=== PATIENT | female | born 1955 | race Caucasian/White ===

== ENCOUNTER → 2016-07-29 | Outpatient (CLI) | payer BC ==
[~2016-07-29] MED LIST: ASA325 MG PO; BENICAR HCT 401 EAC1 PO; CELEBREX200 MG PO; FOSAMAX70 MG PO; OCUVITE SOFTGE1 EACH PO; OXY IR DPS5 MG PO; POLYETHYLENE GL17 GM PO; PROTONIX40 MG PO; SENOKOT S1 TAB PO; THERA1 EACH PO; TYLENOL DPS325 MG PO; ULTRAM DPS50 MG PO; VITAMIN D-32000 UNI1 PO
== END | disposition home or self-care (01) ==
LOC: PTH.S 08:26
DX: Z01.818 Encounter for other preprocedural examination (principal); I10 Essential (primary) hypertension

== ENCOUNTER 2016-08-13 08:35 | Inpatient (IN) | payer BC ==
[~2016-08-13] VITALS: Ht 167.6 cm; Wt 106.4 kg
--- NOTE | 2016-08-13 15:05 | HP ---
ADMIT: 08/13/2016 RM/LOC: W.07 [facility] MR#: [id number] [address] [place], [place] [address] ADRIENNE BELLE [address] [place] [address] Pre-OP History and Physical SEX: F AGE: 61 : 1955 DATE OF SERVICE: CHIEF COMPLAINT: Left knee pain. HISTORY OF PRESENT ILLNESS: The patient is a 61-year-old, white female with left knee DJD. She has had injections in the past, which have not helped. PAST MEDICAL HISTORY: Significant for hypertension, osteoporosis, and C- section. ALLERGIES: NO ALLERGIES. SOCIAL HISTORY: The patient does not smoke or drink alcohol. PHYSICAL EXAMINATION: HEENT: Normocephalic and atraumatic. CV: Regular rate and rhythm. LUNGS: Benign. ABDOMEN: Benign. NEUROLOGIC: Awake and oriented x3. MUSCULOSKELETAL: Shows the patient is short a couple degrees of full extension, flexes 100 degrees. Tender over the medial joint line. Pseudomedial collateral ligament laxity, otherwise stable. Tender over the medial compartment of the knee and the patellofemoral joint. IMAGING DATA: X-rays show left knee DJD down to [id number] medially and patellofemoral arthrosis. ASSESSMENT AND PLAN: Left knee degenerative joint disease. At this point in time, as the patient has failed nonoperative treatment, we will plan left total knee arthroplasty. She understands the risks and benefits of surgical intervention which include, but not limited to infection, DVT, arthrofibrosis, neurovascular injury, early loosening, , etc., and desires to proceed. She will see Dr. Michael for preoperative medical clearance to follow her postoperatively in the hospital for anticoagulation and any medical issues that may arise. Please refer to Dr. Michael's H and P for any in-depth medical issues or medication changes. Rodrikc Palma MD/ alan JOB #: [id number] CC: Rodrick Palma, Attending Physician Jessica Michael, Family Physician
[2016-08-16] MEDS ORDERED: VITAMIN D-32000 UNI1 PO (14:56)
[2016-08-16] MEDS ORDERED: BENICAR HCT 401 EAC1 PO (14:56)
[2016-08-16] MEDS ORDERED: ASA325 MG PO (14:57)
[2016-08-16] MEDS ORDERED: THERA1 EACH PO (14:57)
[2016-08-16] MEDS ORDERED: FOSAMAX70 MG PO (14:57)
[2016-08-16] MEDS ORDERED: CELEBREX200 MG PO (14:57)
[2016-08-16] MEDS ORDERED: OCUVITE SOFTGE1 EACH PO (14:57)
[2016-08-16] MEDS ORDERED: ULTRAM DPS50 MG PO (14:59)
[2016-08-16] MEDS ORDERED: PROTONIX40 MG PO (14:59)
[2016-08-16] MEDS ORDERED: SENOKOT S1 TAB PO (14:59)
[2016-08-16] MEDS ORDERED: TYLENOL DPS325 MG PO (14:59)
[2016-08-16] MEDS ORDERED: POLYETHYLENE GL17 GM PO (14:59)
[2016-08-16] MEDS ORDERED: OXY IR DPS5 MG PO (15:00)
--- NOTE | 2016-08-20 15:26 | OR ---
ADMIT: 08/13/2016 RM/LOC: 512 [facility] MR#: [id number] [address] [address] ADRIENNE BELLE [address] [id number] Operative/Delivery Room Report SEX: F AGE: 61 : 1955 SURGERY DATE: 08/13/2016 SURGEON: Rodrick Palma MD PREOPERATIVE DIAGNOSIS: Left knee degenerative joint disease. POSTOPERATIVE DIAGNOSIS: Left knee degenerative joint disease. PROCEDURE PERFORMED: Left total knee arthroplasty with a Anatoliy and Anatoliy system, size 4 narrow posterior stabilized femoral component, size 3 tibial tray, 10 mm posterior stabilized tibial insert, size 38 patellar button. ASSISTANTS: Juventino Gregg MD and DILCIA Dominguez ANESTHESIA: Spinal. ESTIMATED BLOOD LOSS: Minimal. FLUIDS: Per anesthetic record. COMPLICATIONS: No complications. DRAINS: One drain. TOURNIQUET TIME: 58 minutes. CONDITION ON DISCHARGE: The patient returned to recovery room in fair condition. INDICATION: The patient has been having left knee DJD refractory to nonoperative treatment. She desires total knee arthroplasty. She understands the risks and benefits of procedure and desires to proceed. DESCRIPTION OF PROCEDURE: The patient was taken to the OR, spinal placed. She was laid in the supine position. All bony prominences were well padded. A well- padded tourniquet applied to left lower extremity. The left lower extremity was prepped and draped in the usual sterile fashion, it was exsanguinated. Tourniquet inflated to 350 mmHg. An anterior incision was made over the medial aspect of tibial tubercle, carried proximal to the patella through the skin and subcutaneous tissue with skin knife. Medial arthrotomy then performed with #10 blade. The patella everted. Knee flexed. ACL, PCL, medial and lateral menisci excised. Step drill was then used to open the intramedullary canal of the femur. I placed an IM alignment guide with the distal femoral cutting block down the intramedullary canal set at 13 mm of resection and 5 degrees valgus cut and pinned it to the anterior aspect of the distal femur. I then removed the IM alignment guide. I cut the distal femur using an oscillating saw. I then sized the femur at a 4 narrow. I placed a size four 4-in-1 cutting block on the distal aspect of the femur in 3 degrees of external rotation, made the 4 appropriate cuts using an oscillating saw. I removed this cutting ADMIT: 08/13/2016 RM/LOC: 512 [facility] MR#: [id number] [address] [address] [place] [address] Operative/Delivery Room Report SEX: F AGE: 61 : 1955 block, placed the box cutting jig on the distal aspect of the femur. I cut the box out of the distal femur using a reciprocating saw. I removed this cutting block and I then cut the proximal tibia perpendicular to the long axis of the tibial shaft using a proximal tibial cutting guide and oscillating saw. Posterior aspect of the patella was cut, flush with the posterior aspects of the quadriceps and patellar tendons using the patella cutting saw. This was sized at a 38 and step drilled with a guide. Trial components were then placed. A size 3 tibial tray with 10 mm insert gave excellent range of motion, stability, and patellar tracking. Thus, the femoral component was step drilled. The tibial component was step drilled and cruciate punched. Trial component was then removed. The knee thoroughly injected with an Exparel like compound. I thoroughly irrigated the knee out with bacitracin solution and dried it. I then cemented the tibia, patella, and femoral components into place removing all extraneous cement as it dried. Once this was done, I impacted the 10 mm insert in the tibial tray and ran the knee through a range of motion. It had excellent range of motion, stability, and patellar tracking. Thus, one deep drain was then placed. Medial arthrotomy closed using #1 Vicryl, subcutaneous tissue closed using 2-0 Vicryl, and skin closed using marily. Wounds were washed, dried, dressed with sterile Adaptic, 4x4s, ABD, Webril, and Iglesia wrap. Drapes removed, tourniquet let down. An ice pad was placed on top of the Iglesia wrap. The patient was transferred to the hospital bed and taken back to recovery room in fair condition. Rodrick Palma MD/ alan JOB #: [id number] CC: Rodrick Palma, Attending Physician Jessica Michael, Family Physician
--- NOTE | 2016-09-03 13:58 | DS ---
ADMIT: 08/13/2016 RM/LOC: 512 [facility] MR#: [id number] [address] [address] ADRIENNE BELLE [address] [place] [id number] General Discharge Summary SEX: F AGE: 61 : 1955 ADMISSION DATE: 08/13/2016 DISCHARGE DATE: 08/15/2016 REASON FOR ADMISSION: Elective left total knee arthroplasty after failing conservative care. PREOPERATIVE DIAGNOSIS: Left knee degenerative joint disease. POSTOPERATIVE DIAGNOSIS: Left knee degenerative joint disease. PROCEDURE PERFORMED: Left total knee arthroplasty. SURGEON: Rodrick Palma MD. ASSISTANTS: 1. Juventino Gregg MD. 2. DILCIA Dominguez. ANESTHESIA: Spinal. ESTIMATED BLOOD LOSS: Minimal. COMPLICATIONS: None. PAST MEDICAL HISTORY: Significant for hypertension, osteoporosis, and C- section. HOSPITAL COURSE: The patient was admitted on 08/13/2016, for elective left total knee arthroplasty done successfully without any complications by Dr. Rodrick Palma. The patient tolerated the procedure well. Postoperatively, she did well with pain control. She as expected did suffer from some acute blood- loss anemia. Her hemoglobin dropped to 10.8 on 08/15/2016, but she remained hemodynamically stable and did not require blood transfusion. By postoperative day #2, she was safe stable and doing well with physical therapy. She was ready for discharge home with plans for outpatient physical therapy per total knee arthroplasty protocol. DISCHARGE MEDICATIONS: 1. Benicar HCT 40/25 every morning. 2. Alendronate 70 mg every Friday. 3. Ocuvite every morning. 4. Aspirin 325 mg at bedtime for 6 weeks. 5. Celebrex 200 mg everyday for 2 weeks. ADMIT: 08/13/2016 RM/LOC: 512 [facility] MR#: [id number] [address] [address] [place] BELLE [address] [facility] [place] [address] General Discharge Summary SEX: F AGE: 61 : 1955 6. MiraLax 17 g every day. 7. Protonix 40 mg at bedtime. 8. Senokot 2 tablets twice daily. 9. Tylenol 650 mg every 6 hours. 10.Tramadol 50 mg 1 to 2 tablets every 4 to 6 hours as needed for pain. 11.Oxycodone IR 5 mg 1 to 2 tablets every 4-6 hours as needed for breakthrough pain. DISCHARGE INSTRUCTIONS: The patient was discharged home with plans for outpatient physical therapy per total knee arthroplasty protocol. Follow up in the orthopedic office in 2 weeks for wound check in 6 weeks with x-ray. Follow up with primary care as directed. DILCIA Dominguez / Rodrick Palma MD / alan JOB #: [id number] CC: Rodrick Palma MD, Attending Physician Jessica Michael MD, Family Physician
== END 2016-08-15 16:10 | disposition home or self-care (01) | DRG 470 ==
LOC: WOR 09:56 → 5MS 09:56
PROVIDERS: ADMIT Orthopaedic Surgery
PROC: 0SRD0J9 Replacement of Left Knee Joint with Synthetic Substitute, Cemented, Open Approach (ICD-10-PCS; principal; 2016-08-14)
DX: M17.12 Unilateral primary osteoarthritis, left knee (principal); D62 Acute posthemorrhagic anemia; I10 Essential (primary) hypertension; M81.0 Age-related osteoporosis without current pathological fracture; E66.9 Obesity, unspecified; Z68.36 Body mass index [BMI] 36.0-36.9, adult